=== PATIENT | male | born 1980 | race Caucasian/White ===

== ENCOUNTER → 2016-10-17 | Outpatient (CLI) | payer OTHER ==
[~2016-10-17] MED LIST: FLEXERIL PO; PERCOCET7.5 PO; PROTONIX PO; VICODIN 5/500 T1 TAB PO
--- NOTE | ~2016-10-17 | CR98 ---
[facility] A Service of [facility] & [facility] RADIOLOGY TEXT RESULTS PATIENT: CAM HERNANDES LOCATION: CEEG : 78 UNIT #: [id number] AGE: [address]: Kendrick Barksdale II, MD SEX: M ORDER DR: [id number] [facility] [address] [place], [place] [address] [id number] O MR#: [id number] Acc #: [id number] NAME: CAM HERNANDES : 1980 SEX: M STUDY DATE/TIME: 10/17/2016 9:36 UNIT: [facility] ROOM: STUDY DESCRIPTION: CR Eye FB Uday Attending Physician: Kendrick Barksdale II., M.D. Referring Physician: Kendrick Barksdale II., M.D. Ordering Physician: Kendrick Barksdale II., M.D. Primary Care Physician: Yeny Whitaker MEDICAL IMAGING REPORT This report is preliminary unless electronic signature is present EXAM Orbital films prior to MRI HISTORY Metallic foreign body. COMMENT 2 views of the orbits are reviewed. No prior. No orbital metallic foreign body is appreciated. There is some dental metal and there is hardware in the neck. IMPRESSION Nothing to suggest orbital metal foreign body. Dictated by... Jessica Lea M.D. THIS IS AN ELECTRONICALLY VERIFIED REPORT Jessica Lea M.D. at 10/17/2016 3:41 PM PIPER/rafael TD: 10/17/2016 13:21 JOB #: [id number] MEDICAL IMAGING REPORT Page 1 of 1 COPY
--- NOTE | ~2016-10-17 | EE ---
Unit #: [id number] #: [id number] Patient: CAM HERNANDES [id number] [address] [address] [id number] O MR#: [id number] NAME: CAM HERNANDES. : 1980 SEX: M STUDY DATE/TIME: 10/17/2016 UNIT: CEEG ROOM: STUDY DESCRIPTION: Attending Physician: Kendrick Barksdale II., M.D. Referring Physician: Kendrick Barksdale II., M.D. Primary Care Physician: Yeny Whitaker NEURODIAGNOSTICS REPORT EXAM EEG. REASON FOR STUDY Seizures. TECH Christiana. TECHNICAL INFORMATION This is a routine EEG performed using the [employer] 10/20 System with electrode placement. Photic stimulation was performed. Hyperventilation was not performed. REPORT Throughout the entire study, the best background rhythm seen is approximately 10 Hz. This rhythm is seen in both posterior head regions symmetrically and does attenuate to eye opening and closure. Photic stimulation was performed which did not elicit any epileptiform abnormalities; however, good photic driving response was seen. Hyperventilation was not performed. Throughout the entire study, there were no electrographic seizures recorded, nor does there appear to be any independent epileptiform abnormalities. Sleep was not recorded. INTERPRETATION This is a normal awake EEG. A normal EEG does not rule out the possibility of a seizure disorder. Clinical correlation is advised. Dictated by... Kendrick Barksdale II., M.D. GWS/rashawn TD: 10/24/2016 15:24 JOB #: [id number] Unit #: [id number] #: [id number] Patient: CAM HERNANDES NEURODIAGNOSTICS REPORT Page 1 of 1 X NEURODIAGNOSTICS REPORT
--- NOTE | ~2016-10-17 | MR17 ---
[facility] A Service of [facility] RADIOLOGY TEXT RESULTS PATIENT: CAM HERNANDES LOCATION: CEEG : 78 UNIT #: [id number] AGE: [address]: Kendrick Barksdale II, MD SEX: M ORDER DR: [id number] [facility] [address] [place], [place] [address] [id number] O MR#: [id number] Acc #: [id number] NAME: CAM HERNANDES : 1980 SEX: M STUDY DATE/TIME: 10/17/2016 10:29 UNIT: CEEG ROOM: STUDY DESCRIPTION: MR Brain WWo Contrast Attending Physician: Kendrick Barksdale II., M.D. Referring Physician: Kendrick Barksdale II., M.D. Ordering Physician: Kendrick Barksdale II., M.D. Primary Care Physician: Yeny Whitaker [facility] REPORT This report is preliminary unless electronic signature is present. EXAM Brain MR with and without contrast, 10/17/2016. PROCEDURE Routine brain MR with and without contrast. COMPARISON STUDIES None CLINICAL HISTORY 1 year history of intermittent syncopal episodes most recently 4 months previous. FINDINGS The brain is structurally normal and brain parenchymal signal is normal. There is no restricted diffusion or evidence of acute or chronic hemorrhage. There is no hydrocephalus or extraaxial fluid collection. Normal flow voids are seen in the cerebral vessels. Postcontrast images show no mass or abnormal enhancement. The hippocampal formations are normal and symmetric in size and signal intensity. IMPRESSION Normal brain MR with and without contrast including normal seizure protocol imaging. Dictated by... Sebastián Stubbs M.D. THIS IS AN ELECTRONICALLY VERIFIED REPORT Sebastián Stubbs M.D. at 10/19/2016 1:21 PM [facility] A Service of [facility] RADIOLOGY TEXT RESULTS PATIENT: CAM HERNANDES LOCATION: CEEG : [birth year] UNIT #: [id number] AGE: [address]: Kendrick Barksdale II, MD SEX: M ORDER DR: KESHA/maria antonia TD: 10/17/2016 15:07 JOB #: [id number] [facility] REPORT Page 1 of 1 COPY
== END | disposition home or self-care (01) ==
LOC: CEEG 10-11 08:00 → EDSEX 07:48 → CEEG 08:00
DX: R55 Syncope and collapse (principal); Z87.821 Personal history of retained foreign body fully removed
CPT/HCPCS: 70030; 70553; 95816; A9577